=== PATIENT | male | born 1945 | race Caucasian/White ===

== ENCOUNTER 2016-07-03 08:33 | Outpatient (CLI) | payer BC, MEDICARE ==
[2016-07-03 09:21] LABS: ALT (SGPT) 30 U/L (0-55); AST (SGOT) 26 U/L (5-34); Alkaline Phosphatase 87 U/L (40-150); Anion Gap 16 mmol/L (10-20); BUN (Urea Nitrogen) 18 mg/dL (8.4-25.7); Bilirubin, Total 0.7 mg/dL (0.2-1.2); Calc. Creatinine Clearance 0 mL/min (70-130); Calcium 9.7 mg/dL (7.8-10.44); Carbon Dioxide 26 mmol/L (23-31); Cardiac Risk 5.2 (Less than 4.5); Chloride 105 mmol/L (98-107); Cholesterol 202 mg/dL (< 200 Desired); Estimated GFR-MDRD 74; Glucose 140 mg/dL (80-115); HDL Cholesterol 39 mg/dL (>60 Neg Risk); LDL Cholesterol, Calculated 130 mg/dL; Potassium 4.4 mmol/L (3.5-5.1); Sodium 143 mmol/L (136-145); Triglycerides 163 mg/dL (Less than 150)
[2016-07-03 10:49] LABS: Eosinophils 4 % (0-10); Hemoglobin 15.9 g/dL (14.0-18.0); Lymphocytes 18 % (21-51); MDiff Complete? YES; Mean Corpuscular HGB CONC 32.7 g/dL (32.0-36.0); Mean Corpuscular Hemoglobin 34.2 pg (27.0-31.0); Mean Corpuscular Volume 104.4 fl (80.0-94.0); Mean Platelet Volume 7.3 fL (7.4-10.4); Monocytes 10 % (0-10); Neutrophil 68 % (42-75); PLT Morphology Comment Appears Adequate; Platelet Count 268 thou/uL (130-400); RBC Distribution Width 11.7 % (11.5-14.5); Red Blood Cell (RBC) Count 4.66 mill/uL (4.70-6.10); White Blood Cell (WBC) Count 7.1 thou/uL (4.8-10.8)
== END 2016-07-03 08:34 ==
LOC: MADLABBHPM 08:33 → EDSTATUS 08:36
PROVIDERS: ATTEND Family Medicine
DX: I10 Essential (primary) hypertension (principal)
CPT/HCPCS: 36415; 80053; 80061; 84443; 85025

== ENCOUNTER 2017-07-31 09:54 | Outpatient (CLI) | payer MEDICARE ==
--- NOTE | 2017-07-31 12:23 | RAD ---
RIGHT SHOULDER THREE VIEWS: HISTORY: Fall two days ago with shoulder pain. COMPARISON: None. FINDINGS: No acute displaced fracture or malalignment. 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 The ribs are intact. IMPRESSION: Degenerative changes. No acute abnormality. POS: OFF
== END 2017-07-31 09:55 | disposition home or self-care (01) ==
LOC: MADRAD 09:54
PROVIDERS: ATTEND Family Medicine
DX: M25.511 Pain in right shoulder (principal); M19.011 Primary osteoarthritis, right shoulder

== ENCOUNTER 2018-02-04 09:38 | Emergency (ER) | payer MEDICARE ==
[~2018-02-04 09:38] MED LIST: Atropine Sulfate 1 mg/10 ml Syringe ONE; EPINEPHrine 1 MG/10 ML Abboject SYRINGE ONE; Sodium Chloride 0.9% 1,000 ML BAG ONE
[2018-02-04 16:51] LABS: ALT (SGPT) 75 U/L (8-55); AST (SGOT) 100 U/L (5-34); Albumin 3.6 g/dL (3.4-4.8); Alkaline Phosphatase 93 U/L (40-150); Anion Gap 27 mmol/L (10-20); BUN (Urea Nitrogen) 26 mg/dL (8.4-25.7); Bilirubin, Total 0.7 mg/dL (0.2-1.2); Calc. Creatinine Clearance 0 mL/min (70-130); Calcium 9.6 mg/dL (7.8-10.44); Carbon Dioxide 19 mmol/L (23-31); Chloride 104 mmol/L (98-107); Estimated GFR-MDRD 40; Potassium 3.9 mmol/L (3.5-5.1); Protein, Total 6.6 g/dL (5.8-8.1)
[2018-02-04 16:52] LABS: CKMB 3.2 ng/mL (0-6.6); Glucose 306 mg/dL (83-110); Troponin I 0.081 ng/mL (< 0.028)
[2018-02-04 16:53] LABS: #Eosinphils 0.3 thou/uL (0.0-0.7); #Lymphocytes 5.2 thou/uL (1.20-3.40); #Monocytes 1.1 thou/uL (0.11-0.59); #Neutrophils 5.9 thou/uL (1.40-6.50); %Basophils 1.2 % (0.0-1.0); %Eosinophils 2.4 % (0.0-10.0); %Lymphocytes 40.8 % (21.0-51.0); %Monocytes 8.9 % (0.0-10.0); %Neutrophils 46.6 % (42.0-75.0); Hemoglobin 14.5 g/dL (14.0-18.0); Mean Corpuscular HGB CONC 30.3 g/dL (32.0-36.0); Mean Corpuscular Hemoglobin 30.8 pg (27.0-31.0); Mean Platelet Volume 7.6 fL (7.4-10.4); Platelet Count 183 thou/uL (130-400); RBC Distribution Width 14.6 % (11.5-14.5); White Blood Cell (WBC) Count 12.7 thou/uL (4.8-10.8)
[2018-02-04 16:54] LABS: #Basophils 0.1 thou/uL (0.0-0.2); Sodium 146 mmol/L (136-145)
== END 2018-02-04 10:13 | disposition expired ==
LOC: MADERS 09:38
DX: I46.9 Cardiac arrest, cause unspecified (principal); I49.01 Ventricular fibrillation; I10 Essential (primary) hypertension
CPT/HCPCS: 80053; 82553; 84484; 85025; 92950; 96360; J0171; J0461; J7050